=== PATIENT | male | born 1975 | race Caucasian/White ===

== ENCOUNTER 2016-10-05 11:51 | Emergency (ER) | payer BC ==
[~2016-10-05] VITALS: Ht 177.8 cm; Wt 80.7 kg
[~2016-10-05 11:51] MED LIST: PROINH INH; QVAR; SING10 PO
[2016-10-05 14:42] VITALS: BP 116/64
== END 2016-10-05 14:42 | disposition home or self-care (01) ==
LOC: ED 11:51
DX: J45.901 Unspecified asthma with (acute) exacerbation (principal); Z79.51 Long term (current) use of inhaled steroids
CPT/HCPCS: J7512; J7613; J7644